=== PATIENT | male | born 1975 | race Caucasian/White ===

== ENCOUNTER → 2016-11-12 | Outpatient (CLI) | payer BC, OTHER ==
[~2016-11-12] MED LIST: No meds per pt.
== END | disposition home or self-care (01) ==
LOC: STAR 13:49
PROVIDERS: ATTEND Surgery
DX: Z02.9 Encounter for administrative examinations, unspecified (principal)

== ENCOUNTER 2016-11-17 07:17 | Day surgery (SDC) | payer BC, OTHER ==
[~2016-11-17] VITALS: Ht 165.1 cm; Wt 104.1 kg
[2016-11-17] MEDS ORDERED: BUPIVACAINE/PF 0.5% ONE (08:02)
[2016-11-17] MEDS ORDERED: EPINEPHRINE 1 MG/ML, 1ML ONE (08:02)
[2016-11-17] MEDS ORDERED: BACITRACIN 50,000 UNIT ONE (08:02)
[2016-11-17] MEDS ORDERED: LACTATED RINGERS 1,000 ML IV SCH (08:26)
[2016-11-17 08:30] VITALS: BP 124/84
[2016-11-17] MEDS ORDERED: FENTANYL PF 100 MCG/2ML ONE (10:17)
[2016-11-17] MEDS ORDERED: MIDAZOLAM 1 MG/ML, 2ML ONE (10:18)
[2016-11-17] MEDS ORDERED: HYDROmorphone 1 MG/ML, 1ML ONE ×2 (10:18→11:30)
[2016-11-17] MEDS ORDERED: ROCURONIUM 10 MG/ML ONE (10:29)
[2016-11-17] MEDS ORDERED: GLYCOPYRROLATE 0.2MG/1ML ONE (10:29)
[2016-11-17] MEDS ORDERED: SUCCINYLCHOLINE 20 MG/ML, 10ML ONE (10:29)
[2016-11-17] MEDS ORDERED: NEOSTIGMINE 1 MG/ML, 10ML ONE (10:29)
[2016-11-17] MEDS ORDERED: ONDANSETRON 2MG/ML, 2ML ONE (10:29)
[2016-11-17] MEDS ORDERED: DEXAMETHASONE 4 MG/ML, 1ML ONE (10:29)
[2016-11-17] MEDS ORDERED: PROPOFOL 10 MG/ML, 20ML ONE (10:29)
[2016-11-17] MEDS ORDERED: CLINDAMYCIN 150 MG/ML, 6ML ONE (10:40)
[2016-11-17] MEDS ORDERED: HYDROmorphone 1 MG/ML, 1ML IV PRN (12:00)
[2016-11-17] MEDS ORDERED: ACETAMINOPHEN 325 MG TABLET PO PRN (12:00)
[2016-11-17] MEDS ORDERED: ONDANSETRON 2MG/ML, 2ML IVPush PRN (12:00)
[2016-11-17] MEDS ORDERED: FENTANYL PF 100 MCG/2ML IV PRN (12:00)
[2016-11-17] MEDS ORDERED: OXYcodone 5 MG/5 ML ORAL.SOL UDC PO PRN (12:00)
[2016-11-17] MEDS ORDERED: KETOROLAC 30 MG/1 ML ONE (12:38)
[2016-11-17] MEDS ORDERED: KETOROLAC 30 MG/1 ML IVPush STA (12:39)
[2016-11-17] MEDS ORDERED: OXYcodone 5 MG/5 ML ORAL.SOL UDC ONE (12:44)
[2016-11-17] MEDS ORDERED: ACETAMINOPHEN 325 MG TABLET ONE (12:44)
[2016-11-17] MEDS ORDERED: ACETAMINOPHEN 650 MG/20.3 ML UDC ONE (12:44)
[2016-11-17] MEDS ORDERED: OXYcodone IR 5MG TABLET ONE (14:41)
[2016-11-17] MEDS ORDERED: OXYcodone IR 5MG TABLET PO PRN (15:00)
== END 2016-11-17 15:45 ==
LOC: OUT 07:17
PROVIDERS: ATTEND Surgery
DX: K43.2 Incisional hernia without obstruction or gangrene (principal); E11.9 Type 2 diabetes mellitus without complications; I10 Essential (primary) hypertension; Z98.890 Other specified postprocedural states; Z98.52 Vasectomy status; Z88.1 Allergy status to other antibiotic agents
CPT/HCPCS: 49654; C1781; J0171; J0330; J1100; J1170; J1885; J2250; J2405; J2704; J2710; J3010; J3490; J7120